=== PATIENT | female | born 1995 | race Caucasian/White ===

== ENCOUNTER 2021-12-12 18:36 | Emergency (ER) | payer BC, MEDICAID ==
[2021-12-12 21:33] VITALS: BP 127/88; PULSE 67
[2021-12-12] MEDS ORDERED: Sodium Chloride 0.9% 2.5 ML Syringe FLUSH PRN (21:43)
[2021-12-12] MEDS ORDERED: Sodium Chloride 0.9% 10 ML Syringe FLUSH PRN (21:43)
[2021-12-12] MEDS ORDERED: LORazepam 2 MG/ML SDV IVPUSH ONE (21:44)
[2021-12-12 22:37] LABS: BLOOD UREA NITROGEN,BUN 12 mg/dL (7.0-18.0); CARBON DIOXIDE,CO2 23.9 mmol/L (21.0-32.0); CHLORIDE,CL 103 mmol/L (98-107); GLUCOSE RANDOM 89 mg/dL (74-106); POTASSIUM,K 3.9 mmol/L (3.5-5.1); SODIUM,NA 138 mmol/L (136-145)
== END 2021-12-12 23:41 | disposition home or self-care (01) ==
LOC: MW.ED 18:36
DX: F43.9 Reaction to severe stress, unspecified (principal)
CPT/HCPCS: 36415; 71045; 80053; 83735; 84484; 85025; 93005; 96374; 99285; J2060; 93010; 99283